=== PATIENT | male | born 1970 | race Caucasian/White ===

== ENCOUNTER 2020-06-10 11:56 | Inpatient (IN) ==
[2020-06-10 12:46] LABS: Hemoglobin 14.6 g/dL (12.9-16.9); Immature Granulocytes % 0.2 % (0-4); Mean Corpuscular Volume 102.3 fL (83.0-100.0)
[2020-06-10 12:48] LABS: Basophils % 0.5 %; Eosinophils # 0.1 K/mcL (0.0-0.6); Eosinophils % 0.8 %; Hematocrit 45.1 % (37.5-50.1); Immature Platelets 11.1 % (1.1-6.1); Lymphocytes % 17.7 %; Mean Corpuscular HGB Conc 32.4 g/dL (31.6-35.5); Mean Corpuscular Hemoglobin 33.1 pg (28.0-33.3); Mean Platelet Volume 11.4 fL (9.4-12.4); Monocytes # 0.5 K/mcL (0.0-1.3); Monocytes % 7.6 %; Neutrophils # 4.3 K/mcL (1.6-8.9); Red Blood Count 4.41 M/mcL (4.19-5.50); Segmented Neutrophils % 73.2 %; White Blood Count 5.9 K/mcL (4.3-11.1)
[2020-06-10 13:04] LABS: Acetaminophen < 10 mcg/mL (10-20); BUN/Creatinine Ratio 9 (6-26); Blood Urea Nitrogen 9 mg/dL (6-20); Carbon Dioxide 25 mEq/L (23-29); Chloride 106 mEq/L (98-107); Ethanol < 10 mg/dL (Less than 10); Glucose 109 mg/dL (70-105); Osmolality,Calculated 285 (280-300); Potassium 3.8 mEq/L (3.5-5.1); Salicylate < 2.5 mg/dL (15.0-30.0); Sodium 138 mEq/L (136-145); eGFR For African Americans > 60 (> 60); eGFR For Non-African Americans > 60 (> 60)
[2020-06-10 13:28] LABS: Platelet Count 86 K/mcL (140-400)
[2020-06-10 13:28] LABS: Bilirubin,Urine Negative (Negative); Blood,Urine Negative (Negative); Clarity,Urine Clear (Clear); Color,Urine Light-Yellow (Yellow); Glucose,Urine (UA) Normal (Normal); Ketones,Urine Negative (Negative); Leukocyte Esterase,Urine Negative (Negative); Nitrite,Urine Negative (Negative); PH,Urine 6.5 pH Units (5.0-8.0); Protein,Urine Negative (Neg-Trace); Specific Gravity,Urine 1.009 (1.010-1.025); Urobilinogen,Urine Normal (Normal)
[2020-06-10 13:31] LABS: Platelet Estimate Decreased (Normal)
[2020-06-10 13:40] LABS: Amphetamine Screen,Urine Negative ng/mL (Cutoff=1000); Barbiturate Screen,Urine Negative ng/mL (Cutoff=200); Benzodiazepines Screen,Urine Negative ng/mL (Cutoff=200); Cannabinoid Screen,Urine Negative ng/mL (Cutoff = 50); Cocaine Screen,Urine Negative ng/mL (Cutoff= 300); Opiate Screen,Urine Negative ng/mL (Cutoff=300); Phencyclidine Screen,Urine Negative ng/mL (Cutoff=25)
[2020-06-10] MEDS ORDERED: *HR* LORazepam 2 MG/ML VIAL IM PRN (16:35)
[2020-06-10] MEDS ORDERED: haloperidoL 5 MG TABLET PO PRN (16:35)
[2020-06-10] MEDS ORDERED: Acetaminophen 325 MG TABLET PO PRN (16:35)
[2020-06-10] MEDS ORDERED: *HR* LORazepam 1 MG TABLET PO PRN (16:35)
[2020-06-10] MEDS ORDERED: Haloperidol Lactate 5 MG/ML VIAL IM PRN (16:35)
[2020-06-10] MEDS ORDERED: Mag Hydrox/Al Hydrox/Simeth 30 ML UDC PO PRN (16:35)
[2020-06-10] MEDS ORDERED: MOM Conc 10 ML UD.LIQ PO PRN (16:35)
[2020-06-10] MEDS: traZODone 50 MG TABLET PO PRN (19:59)
[2020-06-11] MEDS: Folic Acid 1 MG TABLET PO SCH (08:52)
[2020-06-11] MEDS: Thiamine (B-1) 100 MG TABLET PO SCH (08:52)
[2020-06-11] MEDS: ARIPiprazole 5 MG TABLET PO SCH (12:59)
[2020-06-12] MEDS: Folic Acid 1 MG TABLET PO SCH (10:07)
[2020-06-12] MEDS: Thiamine (B-1) 100 MG TABLET PO SCH (10:07)
[2020-06-12] MEDS: ARIPiprazole 5 MG TABLET PO SCH (10:07)
[2020-06-12] MEDS: hydrOXYzine pamoate 25 MG CAPSULE PO PRN ×2 (12:47→19:34)
[2020-06-12] MEDS: traZODone 50 MG TABLET PO PRN (21:05)
[2020-06-13] MEDS: Thiamine (B-1) 100 MG TABLET PO SCH (08:58)
[2020-06-13] MEDS: ARIPiprazole 5 MG TABLET PO SCH (08:58)
[2020-06-13] MEDS: Folic Acid 1 MG TABLET PO SCH (08:58)
[2020-06-13] MEDS ORDERED: ARIPiprazole 5 MG TABLET PO ONE (09:05)
[2020-06-13] MEDS: hydrOXYzine pamoate 25 MG CAPSULE PO PRN (19:38)
[2020-06-13] MEDS: traZODone 50 MG TABLET PO PRN (21:15)
[2020-06-14] MEDS: Folic Acid 1 MG TABLET PO SCH (09:19)
[2020-06-14] MEDS: Thiamine (B-1) 100 MG TABLET PO SCH (09:19)
[2020-06-14] MEDS: ARIPiprazole 10 MG TABLET PO SCH (09:19)
[2020-06-14 14:34] LABS: Albumin 4.2 g/dL (3.5-5.7); Albumin/Globulin Ratio 1.7 (1.1-2.2); Bilirubin,Direct 0.1 mg/dL (0.0-0.2); Bilirubin,Indirect 0.3 mg/dL (0.0-1.0); Bilirubin,Total 0.4 mg/dL (0.3-1.0); Globulin 2.5 g/dL (2.4-3.5); Total Protein 6.7 g/dL (6.4-8.9)
[2020-06-14] MEDS: hydrOXYzine pamoate 25 MG CAPSULE PO PRN (18:41)
[2020-06-14] MEDS: traZODone 50 MG TABLET PO PRN (20:20)
[2020-06-15] MEDS: ARIPiprazole 10 MG TABLET PO SCH (08:37)
[2020-06-15] MEDS: Thiamine (B-1) 100 MG TABLET PO SCH (08:38)
[2020-06-15] MEDS: Folic Acid 1 MG TABLET PO SCH (08:38)
[2020-06-15 08:49] VITALS: BP 117/79
[2020-06-15] MEDS: hydrOXYzine pamoate 25 MG CAPSULE PO PRN (12:40)
== END 2020-06-15 15:40 | disposition home or self-care (01) | DRG 885 ==
LOC: EMEROOARM 11:56 → 1ANU 16:20
PROVIDERS: ADMIT Psychiatry & Neurology Psychiatry; ATTEND Psychiatry & Neurology Psychiatry